=== PATIENT | female | born 1980 | race African-American/Black ===

== ENCOUNTER 2021-05-25 20:07 | Inpatient (IN) | payer MEDICAID ==
[~2021-05-25] VITALS: Ht 167.6 cm; Wt 88.0 kg
[~2021-05-25 20:07] MED LIST: AMLO10TA80 PO; ATOR20TA65 MT; FOLI-43 MT; L25 PO; METO-539 PO; MULT-1146 MT; THIA100T72 PO
[2021-05-25] MEDS ORDERED: SODIUM CHLORIDE 0.9% 1,000 ML IV ONE (21:00)
[2021-05-25 21:39] LABS: BASOPHILS % 1.4 % (0.0-2.0); EOSINOPHILS % 1.6 % (0.0-5.0); LYMPHOCYTES % 14.6 % (20.0-50.0); MEAN CORPUSCULAR HEMOGLOBIN 32.1 pg (28.0-32.0); MEAN CORPUSCULAR VOLUME 101.5 fL (81.0-99.0); MEAN PLATELET VOLUME 10.2 fl (7.4-10.4); MONOCYTES % 8.9 % (2.0-8.0); NEUTROPHILS % 73.5 % (40.0-76.0); PLATELET 270 x1000/uL (130-400); RED BLOOD CELL COUNT 1.73 mill/uL (4.2-5.4); RED CELL DISTRIBUTION WIDTH 18.7 % (11.6-14.6)
[2021-05-25 21:41] LABS: HEMATOCRIT. 17.6 % (36.0-48.0); HEMOGLOBIN. 5.6 g/dL (12.0-16.0)
[2021-05-25 21:42] LABS: CHLORIDE 107 mEq/L (98-107)
[2021-05-25 21:53] LABS: B-HCG QUANTITATIVE < 1 mIU/mL (<3)
[2021-05-25 22:06] LABS: INR 1.1; PARTIAL THROMBOPLASTIN TIME < 21.0 sec (23.4-31.0); PROTHROMBIN TIME 11.8 sec (9.6-11.0)
[2021-05-26 09:45] LABS: CLARITY URINE CLEAR (CLEAR); COLOR URINE YELLOW (YELLOW); KETONES URINE TRACE (NEGATIVE); LEUKOCYTE ESTERASE URINE NEGATIVE (NEGATIVE); NITRITE URINE NEGATIVE (NEGATIVE); OCCULT BLOOD URINE 3+ (NEGATIVE); PH URINE 5.5 (4.5-8.0); PROTEIN URINE 1+ (NEGATIVE); SPECIFIC GRAVITY URINE 1.014 (1.005-1.030); UROBILINOGEN URINE 0.2 E.U./dL (0.2-1.0)
[2021-05-26 12:15] VITALS: BP 111/48
[2021-05-26] MEDS ORDERED: DOCUSATE SODIUM 100MG CAPSULE PO PRN (13:00)
[2021-05-26] MEDS ORDERED: HYDROCODONE/ACETAMINOPHEN 5/325MG TABLET PO PRN (13:00)
[2021-05-26] MEDS ORDERED: ACETAMINOPHEN 325MG TABLET PO PRN (13:00)
[2021-05-26] MEDS ORDERED: IPRATROPIUM/ALBUTEROL 0.5-3(2.5)MG/3ML NEB HHN PRN (13:00)
[2021-05-26] MEDS ORDERED: MAGNESIUM/ALUMINUM HYDROXIDE/SIMETHICONE 30ML UDC PO PRN (13:00)
[2021-05-26] MEDS ORDERED: CLONIDINE 0.1MG TABLET PO PRN (13:00)
[2021-05-26] MEDS ORDERED: ONDANSETRON HCL 4MG/2ML INJ IV PRN (13:00)
[2021-05-26] MEDS ORDERED: NALOXONE HCL 0.4MG/ML VIAL IV PRN (13:30)
[2021-05-26 13:51] LABS: HEMATOCRIT 25.2 % (36.0-48.0); HEMOGLOBIN 7.7 g/dL (12.0-16.0)
[2021-05-26 14:00] LABS: TOTAL IRON BINDING CAPACITY 301 ug/dL (250-450)
[2021-05-26] MEDS: THIAMINE HCL 100MG TABLET PO SCH (14:10)
[2021-05-26] MEDS: CHLORDIAZEPOXIDE 5 MG CAPSULE PO SCH ×2 (14:10→21:36)
[2021-05-26] MEDS: FOLIC ACID 1MG TABLET PO SCH (14:10)
[2021-05-26] MEDS: OMEPRAZOLE 20MG CAPSULE EXTENDED RELEASE PO SCH (14:10)
[2021-05-26] MEDS: SODIUM CHLORIDE 0.9% 1,000 ML IV SCH (14:10)
[2021-05-26] MEDS: MULTIVITAMINS,THER W-MINERALS TABLET PO SCH (14:11)
[2021-05-26] MEDS ORDERED: GABA-532 MT (14:48)
[2021-05-26] MEDS ORDERED: LORA2TAB95 MT (14:48)
[2021-05-26 16:00] VITALS: BP 98/63
[2021-05-26 20:00] VITALS: BP 92/49
[2021-05-26] MEDS: METOPROLOL TARTRATE 50MG TABLET PO SCH (21:00)
[2021-05-26] MEDS: ATORVASTATIN CALCIUM 20MG TABLET PO SCH (21:36)
[2021-05-27] VITALS (11 sets, daily range): BP systolic 97–116; BP diastolic 46–70
[2021-05-27] MEDS: SODIUM CHLORIDE 0.9% 1,000 ML IV SCH ×2 (03:30→16:28)
[2021-05-27] MEDS: OMEPRAZOLE 20MG CAPSULE EXTENDED RELEASE PO SCH (05:45)
[2021-05-27] MEDS: CHLORDIAZEPOXIDE 5 MG CAPSULE PO SCH ×3 (05:46→21:06)
[2021-05-27 07:29] LABS: BASOPHILS % 0.5 % (0.0-2.0); EOSINOPHILS % 2.4 % (0.0-5.0); HEMATOCRIT. 23.3 % (36.0-48.0); HEMOGLOBIN. 7.4 g/dL (12.0-16.0); LYMPHOCYTES % 14.3 % (20.0-50.0); MEAN CORPUSCULAR HEMOGLOBIN 31.8 pg (28.0-32.0); MEAN PLATELET VOLUME 9.9 fl (7.4-10.4); MONOCYTES % 7.5 % (2.0-8.0); NEUTROPHILS % 75.3 % (40.0-76.0); PLATELET 233 x1000/uL (130-400); RED BLOOD CELL COUNT 2.31 mill/uL (4.2-5.4); RED CELL DISTRIBUTION WIDTH 18.2 % (11.6-14.6)
[2021-05-27] MEDS: METOPROLOL TARTRATE 50MG TABLET PO SCH ×2 (09:19→21:06)
[2021-05-27] MEDS: MULTIVITAMINS,THER W-MINERALS TABLET PO SCH (09:19)
[2021-05-27] MEDS: FOLIC ACID 1MG TABLET PO SCH (09:19)
[2021-05-27] MEDS: AMLODIPINE 10MG TABLET PO SCH (09:19)
[2021-05-27] MEDS: THIAMINE HCL 100MG TABLET PO SCH (09:19)
[2021-05-27] MEDS: ATORVASTATIN CALCIUM 20MG TABLET PO SCH (21:06)
[2021-05-27 21:45] LABS: HEMATOCRIT 26.1 % (36.0-48.0); HEMOGLOBIN 8.7 g/dL (12.0-16.0)
[2021-05-27 22:05] LABS: CREATINE KINASE 30 IU/L (26-192)
[2021-05-28] VITALS: BP 100/65
[2021-05-28 04:00] VITALS: BP 113/70
[2021-05-28] MEDS: SODIUM CHLORIDE 0.9% 1,000 ML IV SCH (06:27)
[2021-05-28] MEDS: OMEPRAZOLE 20MG CAPSULE EXTENDED RELEASE PO SCH (06:47)
[2021-05-28] MEDS: CHLORDIAZEPOXIDE 5 MG CAPSULE PO SCH ×2 (06:47→14:57)
[2021-05-28 07:55] LABS: BASOPHILS % 0.4 % (0.0-2.0); HEMATOCRIT. 28.9 % (36.0-48.0); HEMOGLOBIN. 9.2 g/dL (12.0-16.0); LYMPHOCYTES % 19.9 % (20.0-50.0); MEAN CORPUSCULAR HEMOGLOBIN 30.3 pg (28.0-32.0); MEAN CORPUSCULAR VOLUME 95.1 fL (81.0-99.0); MEAN PLATELET VOLUME 9.9 fl (7.4-10.4); NEUTROPHILS % 71.7 % (40.0-76.0); PLATELET 245 x1000/uL (130-400); RED BLOOD CELL COUNT 3.04 mill/uL (4.2-5.4); RED CELL DISTRIBUTION WIDTH 21.6 % (11.6-14.6)
[2021-05-28 08:00] VITALS: BP 101/56
[2021-05-28] MEDS: AMLODIPINE 10MG TABLET PO SCH (08:50)
[2021-05-28] MEDS: METOPROLOL TARTRATE 50MG TABLET PO SCH (08:50)
[2021-05-28] MEDS: FOLIC ACID 1MG TABLET PO SCH (08:59)
[2021-05-28] MEDS: THIAMINE HCL 100MG TABLET PO SCH (08:59)
[2021-05-28] MEDS: MULTIVITAMINS,THER W-MINERALS TABLET PO SCH (08:59)
[2021-05-28 12:00] VITALS: BP 122/63
[2021-05-28 16:00] VITALS: BP 121/65
[2021-05-28 16:36] VITALS: BP 121/65
== END 2021-05-28 18:20 | disposition home or self-care (01) | DRG 532 ==
LOC: ER 20:22 → EDBEDREQTM 20:58 → MICUSO 22:57 → EDBEDREQ 23:05 → EDBEDREQTM 23:05 → 7EST 05-26 10:03
PROVIDERS: ADMIT Internal Medicine; ATTEND Internal Medicine
PROC: 30233N1 Transfusion of Nonautologous Red Blood Cells into Peripheral Vein, Percutaneous Approach (ICD-10-PCS; principal; 2021-05-25)
DX: D25.9 Leiomyoma of uterus, unspecified (principal); N17.0 Acute kidney failure with tubular necrosis; E44.0 Moderate protein-calorie malnutrition; F10.20 Alcohol dependence, uncomplicated; F32.9 Major depressive disorder, single episode, unspecified; I10 Essential (primary) hypertension; N94.6 Dysmenorrhea, unspecified; R74.01 Elevation of levels of liver transaminase levels; D64.89 Other specified anemias; Z88.0 Allergy status to penicillin; Z79.899 Other long term (current) drug therapy; Z71.41 Alcohol abuse counseling and surveillance of alcoholic; Z68.31 Body mass index [BMI] 31.0-31.9, adult
CPT/HCPCS: 36415; 71045; 76770; 76830; 76856; 80048; 80053; 81003; 82550; 83540; 83550; 83880; 84484; 84702; 85014; 85018; 85025; 86850; 86900; 86920; 93970; 99291; J7030; P9016

== ENCOUNTER 2021-07-28 04:15 | Emergency (ER) | payer MEDICAID ==
[~2021-07-28] VITALS: Ht 157.5 cm; Wt 82.0 kg
[~2021-07-28 04:15] MED LIST changes: +GABA-532 MT; +LORA2TAB95 MT
[2021-07-28 04:16] VITALS: BP 160/90
[2021-07-28 06:06] LABS: BASOPHILS % 0.5 % (0.0-2.0); EOSINOPHILS % 2.4 % (0.0-5.0); HEMATOCRIT. 36.6 % (36.0-48.0); HEMOGLOBIN. 11.6 g/dL (12.0-16.0); LYMPHOCYTES % 13.3 % (20.0-50.0); MEAN CORPUSCULAR HEMOGLOBIN 28.4 pg (28.0-32.0); MEAN PLATELET VOLUME 10.9 fl (7.4-10.4); MONOCYTES % 11.1 % (2.0-8.0); NEUTROPHILS % 72.7 % (40.0-76.0); PLATELET 315 x1000/uL (130-400); RED BLOOD CELL COUNT 4.06 mill/uL (4.2-5.4)
[2021-07-28 06:07] LABS: CHLORIDE 106 mEq/L (98-107)
[2021-07-28 06:13] LABS: ETHANOL BLOOD < 10 mg/dL
[2021-07-28 06:21] LABS: B-HCG QUANTITATIVE < 1 mIU/mL (<3)
[2021-07-28 06:34] LABS: CLARITY URINE CLOUDY (CLEAR); KETONES URINE 1+ (NEGATIVE); LEUKOCYTE ESTERASE URINE 2+ (NEGATIVE); NITRITE URINE NEGATIVE (NEGATIVE); OCCULT BLOOD URINE 3+ (NEGATIVE); PH URINE 5.5 (4.5-8.0); PROTEIN URINE 1+ (NEGATIVE); SPECIFIC GRAVITY URINE 1.027 (1.005-1.030)
[2021-07-28 06:49] LABS: METHADONE URINE SCREEN NEGATIVE (NEGATIVE); OPIATES URINE SCREEN NEGATIVE (NEGATIVE); PHENCYCLIDINE URINE SCREEN NEGATIVE (NEGATIVE)
[2021-07-28 06:50] LABS: *AMPHETAMINES SCREEN URINE NEGATIVE (NEGATIVE); *BARBITURATES SCREEN URINE NEGATIVE (NEGATIVE); *COCAINE SCREEN URINE NEGATIVE (NEGATIVE)
[2021-07-28 07:04] LABS: *BENZODIAZEPINES SCREEN URINE PRESUMTIVE POSITIVE (NEGATIVE); CANNABINOID URINE SCREEN PRESUMTIVE POSITIVE (NEGATIVE); COLOR URINE YELLOW (YELLOW)
== END 2021-07-28 11:34 | disposition left against medical advice (07) ==
LOC: ER 04:15
DX: R46.2 Strange and inexplicable behavior (principal); I10 Essential (primary) hypertension; Z86.59 Personal history of other mental and behavioral disorders; Z88.0 Allergy status to penicillin; Z79.899 Other long term (current) drug therapy
CPT/HCPCS: 36415; 80053; 80305; 80307; 80320; 80329; 81003; 84702; 85025; 93005; 99284; G0480